=== PATIENT | female | born 1960 ===

== ENCOUNTER 2017-09-23 06:18 | Inpatient (IN) | payer MEDICARE, MEDICAID ==
--- NOTE | 2017-09-23 07:34 | C.PDOC ---
History Of Present Illness <Elvira Ashov - Last Filed: 09/23/17 18:52> <Bharat Hurst - Last Filed: 09/24/17 01:37> 56 y/o female with history of schizophrenia and HIV brought to ED by police for psych evaluation. Patient has history of psychiatric admissions and currently denies auditory or visual hallucinations. Admits to not remembering to take her medication. - notes she takes risperdal and adderall. Admits to being homeless. (Haydee Ash) History Per: Patient, EMS History/Exam Limitations: no limitations Onset/Duration Of Symptoms: Days Current Symptoms Are (Timing): Still Present Suicide/Self Injury Attempted (Context): None <Haydee Ash - Last Filed: 09/23/17 18:52> <Bharat Hurst - Last Filed: 09/24/17 01:37> Time Seen by Provider: 09/23/17 07:32 Chief Complaint (Nursing): Psychiatric Evaluation Past Medical History Reviewed: Historical Data, Nursing Documentation, Vital Signs - Medical History PMH: HIV, Schizophrenia Surgical History: No Surg Hx Family History: States: No Known Family Hx - Social History Hx Alcohol Use: No (unknown) Hx Substance Use: No (unknown) <Haydee Ash - Last Filed: 09/23/17 18:52> Vital Signs: Last Vital Signs Temp 98.4 F 09/23/17 20:00 Pulse 78 09/23/17 20:00 Resp 20 09/23/17 20:00 BP 107/67 09/23/17 20:00 Pulse Ox 98 09/23/17 20:00 Review Of Systems Review Of Systems: ROS cannot be obtained secondary to pt's inabilty to answer questions. <Haydee Ash - Last Filed: 09/23/17 18:52> Physical Exam - Physical Exam Appears: Non-toxic, No Acute Distress, Other (Talking nonsensical, Flight of ideas noted. tearful occassionally) Skin: Warm, Dry, No Rash Head: Atraumatic, Normacephalic Eye(s): bilateral: Normal Inspection, EOMI Nose: Normal Oral Mucosa: Moist Neck: Normal ROM, Supple Chest: Symmetrical Cardiovascular: Rhythm Regular Respiratory: Normal Breath Sounds, No Rales, No Rhonchi, No Wheezing Gastrointestinal/Abdominal: Soft, No Tenderness, No Guarding, No Ascites Extremity: Normal ROM, Other (Well healed right toe amputation) Neurological/Psych: No Oriented x3 (alert and awake x 1), Other (Involuntary body movements) <Haydee Ash - Last Filed: 09/23/17 18:52> ED Course And Treatment - Laboratory Results Result Diagrams: 09/23/17 07:56 09/23/17 07:56 O2 Sat by Pulse Oximetry: 97 (RA) Pulse Ox Interpretation: Normal Progress Note: Patient ate a sandwich and states "I feel good". youth accommodation support worker evaluated pt and suggests [facility] evaluation. Dr Fisher ordered medication. [facility] evaluated pt, notes pt evaluated and will return penidng alert and awake. Pt observed in ER with serial re-evaluation. Case endorsed to Dr Hurst pending re- evaluation and disposition. <Haydee Ash - Last Filed: 09/23/17 18:52> - Laboratory Results Result Diagrams: 09/23/17 07:56 09/23/17 07:56 <Bharat Hurst - Last Filed: 09/24/17 01:37> Disposition - Disposition Disposition Time: 18:59 <Haydee Ash - Last Filed: 09/23/17 18:52> Discussed With : Hardeep Fisher Doctor Will See Patient In The: Hospital Counseled Patient/Family Regarding: Diagnosis - Disposition Disposition Time: 01:37 - POA Present On Arrival: None <Bharat Hurst - Last Filed: 09/24/17 01:37> - Disposition Disposition: HOSPITALIZED Condition: STABLE Instructions: Schizophrenia (ED) Forms: [facility] (Indonesian) - Clinical Impression Clinical Impression: Schizophrenia - PA / GREENHOUSE ASSISTANT / Resident Statement MD/DO has reviewed & agrees with the documentation as recorded. - Scribe Statement The provider has reviewed the documentation as recorded by the Scribe <Haydee Ash - Last Filed: 09/23/17 18:52> <Bharat Hurst - Last Filed: 09/24/17 01:37> - Scribe Statement Gregorio Barber All medical record entries made by the Scribe were at my direction and personally dictated by me. I have reviewed the chart and agree that the record accurately reflects my personal performance of the history, physical exam, medical decision making, and the department course for this patient. I have also personally directed, reviewed, and agree with the discharge instructions and disposition. (Haydee Ash) Physician Patient Turnover Patient Signed Over To: Bharat Hurst <Haydee Ash - Last Filed: 09/23/17 18:52>
[2017-09-23 08:01] LABS: BASO % 0.6 % (0.0-2.0); EOS # 0.1 K/uL (0.0-0.7); EOS % 1.7 % (0.0-4.0); HEMOGLOBIN 12.5 g/dL (11.0-16.0); LYMPH # 2.2 K/uL (1.0-4.3); LYMPH % 31.6 % (20.0-40.0); MEAN CORPUSCULAR HEMOGLOBIN 28.9 pg (27.0-31.0); MEAN CORPUSCULAR HGB CONC 33.6 g/dL (33.0-37.0); MEAN PLATELET VOLUME 7.4 fL (7.2-11.7); MONO # 0.8 K/uL (0.0-0.8); MONO % 10.7 % (0.0-10.0); NEUT # 3.9 K/uL (1.8-7.0); NEUT % 55.4 % (50.0-75.0); NRBC % 0.1 % (0.0-2.0); RBC 4.33 Mil/uL (3.80-5.20); RED CELL DISTRIBUTION WIDTH 14.5 % (11.5-14.5); WHITE BLOOD COUNT 7.1 K/uL (4.8-10.8)
[2017-09-23 08:14] LABS: ALBUMIN 4.4 g/dL (3.5-5.0); ALT/SGPT 45 U/L (9-52); AST/SGOT 100 U/L (14-36); BLOOD UREA NITROGEN 41 mg/dL (7-17); CALCIUM 9.4 mg/dl (8.6-10.4); GFR AFRICAN-AMERICAN > 60; GFR NON-AFRICAN AMERICAN 52
[2017-09-23 08:26] LABS: ALB/GLOB RATIO 0.9 (1.0-2.1)
[2017-09-23 08:49] LABS: SQUAMOUS EPITHIAL 2 /hpf (0-5); URINE BILIRUBIN NEGATIVE (NEGATIVE); URINE CLARITY Clear (Clear); URINE COLOR Yellow (YELLOW); URINE GLUCOSE (UA) NORMAL (Normal); URINE LEUKOCYTE ESTERASE TRACE Leu/uL (Negative); URINE NITRATE NEGATIVE (NEGATIVE); URINE PROTEIN 1+ mg/dL (NEGATIVE); URINE UROBILINOGEN NORMAL mg/dL (0.2-1.0)
[2017-09-23 09:06] LABS: BARBITURATES, UR NEGATIVE (NEGATIVE); BENZODIAZEPINES, UR NEGATIVE (NEGATIVE); PHENCYCLIDINE, UR NEGATIVE (NEGATIVE)
[2017-09-23 09:30] LABS: OPIATES, UR POSITIVE (NEGATIVE)
[2017-09-23 09:34] LABS: URINE BLOOD NEGATIVE (NEGATIVE)
--- NOTE | 2017-09-24 02:30 | PCM.BM ---
Treatment Plan Problems - Problems identified on initial assessmt Schizophrenia Date Initiated: 09/24/17 Time Initiated: 02:20 Assessment reference: NA Status: Active Problem 2 Assessment reference: NA Status: Active Substance Abuse Assessment reference: NA Status: Active Treatment assets and liabiliti Patient Assests: cooperative, ADL independent, negotiates basic needs Patient Liabilities: live alone, financial problems, poor support system, substance abuse - Milieu Protocol Maintain good personal hygiene: daily Encourage regular showers, daily Remind patient to perform daily oral care, daily Assist patient to perform ADL's Conduct patient checks and document Observation sheet: Q15 minutes Maintain personal safety: every shift Educate patient to report safety concerns to staff, every shift Monitor environment for contraband/sharps Medication safety: Monitor for expected outcome, potential side effects: every shift, Assess barriers to learning: every shift, Assess readiness for medication education: every shift
--- NOTE | 2017-09-24 03:18 | PCM.BM ---
<Judith Molina - Last Filed: 09/24/17 03:16> Treatment Plan Problems - Problems identified on initial assessmt Schizophrenia Date Initiated: 09/24/17 Time Initiated: 02:20 Assessment reference: NA Status: Active Anxiety Date Initiated: 09/24/17 Time Initiated: 02:20 Assessment reference: NA Status: Active Treatment assets and liabiliti Patient Assests: ADL independent, negotiates basic needs Patient Liabilities: financial problems, poor support system, medical problems - Milieu Protocol Maintain good personal hygiene: daily Encourage regular showers, daily Remind patient to perform daily oral care, daily Assist patient to perform ADL's Conduct patient checks and document Observation sheet: Q15 minutes Maintain personal safety: every shift Educate patient to report safety concerns to staff, every shift Monitor environment for contraband/sharps Medication safety: Monitor for expected outcome, potential side effects: every shift, Assess barriers to learning: every shift, Assess readiness for medication education: every shift <Yeni Hopkins - Last Filed: 09/26/17 10:52> Treatment Plan Problems - Problems identified on initial assessmt Schizophrenia Date Initiated: 09/24/17 Time Initiated: 02:20 Assessment reference: NA Status: Active Anxiety Date Initiated: 09/24/17 Time Initiated: 02:20 Assessment reference: NA Status: Active Substance Abuse Date Initiated: 09/24/17 Time Initiated: 02:20 Family Contact Family involvement: Famliy/SO not involved - Goals for Treatment Patient goals for treatment: "I want to go to an adult daycare." Discharge/Continuing Care - Education Needs Education Needs: Patient Medication, Patient Coping Skills, Patient Placement options, Patient Community resources - Discharge Discharge Criteria: Tolerates medication w/o severe side effects, Reduction of target symptoms Discharge to:: [facility] - Treatment Team Participation Discussed with Family/SO: No Was Patient/Family/SO present at Treatment Team Meeting: Yes <Hardeep Fisher - Last Filed: 09/26/17 10:57> Treatment Plan Problems - Problems identified on initial assessmt Schizophrenia Date Initiated: 09/24/17 Time Initiated: 02:20 Assessment reference: NA Status: Active Anxiety Date Initiated: 09/24/17 Time Initiated: 02:20 Assessment reference: NA Status: Active Substance Abuse Date Initiated: 09/24/17 Time Initiated: 02:20 - Diagnosis (1) Schizophrenia Status: Acute Interventions: 09/26/17 10:57 * Assess/adjust medications daily and /or as needed * See patient on an individual basis 7x/week to assess status of hallucinations * Discuss risks, benefits, side effects and alternatives of medications * (2) Cocaine use disorder, severe, dependence Status: Acute Interventions: 09/26/17 10:57 * Assess 7x/week regarding severity of withdrawal * Educate regarding risks, benefits, side effects and alternatives of medications * Use Motivational Interviewing for abstinence * Use CBT for relapse prevention * Medication management for withdrawal symptoms * Encourage medication assisted treatment *
--- NOTE | 2017-09-24 13:39 | PCM.PSYCH ---
Initial Psychiatric Evaluation - Initial Psychiatric Evaluation Type of Admission: Voluntary Legal Status: Capacity Chief Complaint (in patient's own words): I came here to get help.' History of Present Illness and Precipitating Events: This is a 56 years old HF, who was escorted to the ED by the police because they disorganized and bizzare behavior. According to ED report, pt was found by police crying in the rain and naked from the waist down. Pt presented with very restless behavior, pt was unable to still still for even 1 second. Pt was responding to questions, but not answering appropriately. Pt presented with flight of ideas, disorganized thoughts. Patient was medic[place] [facility] [place]. However since patient was sleeping, they left. Patient remained disorganized and internally preoccupied. In the ED she was reassessed around 10 PM, pt remained drowsy and disoriented. When asked where is she, pt stated "near [employer]," and when asked the city, she stated "[place]." Pt stated that the month and year "October 2017." Pt does not remember the events leading up to her coming to the hospital. Pt stated she is prescribed Risperdal 2mg and Ad[place]all by at [facility] [place] As per the hospital charts patient has a long history of schizophrenia and cocaine abuse. She was recently discharged from [facility] last month. However patient remained superficially cooperative and guarded. She remained delusional and paranoid and she continued to answer no to all the questions. She remained disorganized and appears to have loose associations. She reports of hearing voices and seeing things in the past. Her urine toxicology was positive for heroin and methamphetamine. However she denies abusing any substance and denies any SI/HI. Past medical history None reported Current Medications: Active Medications Generic Name Dose Route Start Last Admin Trade Name Freq PRN Reason Stop Dose Admin Benztropine Mesylate 1 mg 09/23/17 10:30 09/24/17 09:58 Cogentin PO 1 mg BID JOCELYN Administration Diphenhydramine HCl 25 mg 09/23/17 10:23 09/24/17 02:42 Benadryl PO 25 mg Q6 PRN Administration Agitation Fluphenazine HCl 5 mg 09/23/17 10:30 09/24/17 09:58 Prolixin PO 5 mg BID JOCELYN Administration Pneumococcal Polyvalent Vaccine 0.5 ml 09/27/17 10:00 Pneumovax 23 Vaccine IM 09/27/17 10:01 .ONCE ONE Past Psychiatric History - Past Psychiatric History Previous Treatment History: Inpatient Pertinent Medical Hx (Current Medical&Sleep Prob, Allergies): Allergies Allergy/AdvReac Type Severity Reaction Status Date / Time Unobtainable Allergy Verified 09/23/17 06:32 No Known Home Med 09/23/17 Review of Systems - Review of Systems All systems: reviewed and no additional remarkable complaints except - Psychiatric Psychiatric: Anxiety, Irritability, Paranoia Mental Status Examination - Personal Presentation Personal Presentation: Looks stated age - Affect Affect: Flat - Motor Activity Motor Activity: Psychomotor Retardation - Reliability in Providing Information Reliability in Providing Information: Poor, due to alteration in thoughts - Speech Speech: Disorganized - Mood Mood: Anxious - Formal Thought Process Formal Thought Process: Delusions, Paranoia, Loosening of associations - Hallucinations/Delusions Delusions: Persecution - Obsessions/Compulsions Obsessions: No Compulsions: No - Cognitive Functions Orientation: Person, Place, Situation, Time Sensorium: Alert Attention/Concentration: Attentive Abstract Thinking: [place] Estimate of Intelligence: Below average Judgement: Imparied, as evidence by: Poor judgement, Imparied, as evidence by: Lack of insight into illness - Risk Risk: Diminished functioning - Strength & Assets Inventory Strength & Assets Inventory: Cooperative - Limitations Limitations: Living alone DSM 5 DX - DSM 5 DSM 5 Diagnosis: Schizophrenia paranoid type continuous Cocaine use disorder moderate Opiate use disorder moderate - Recommended/Plan of Treatment Treatment Recommendations and Plan of Treatment: Schizophrenia paranoid type continuous CBT Psychoeducation Supportive therapy, group therapy, individual therapy Prolixin 5 mg by mouth twice a day Cogentin 1 mg by mouth twice a day Neurontin 100 mg by mouth 3 times a day Trazodone 50 mg by mouth daily at bedtime Cocaine use disorder moderate CBT Psychoeducation Supportive therapy, individual therapy Use [place] for abstinence Opiate use disorder moderate CBT Psychoeducation Supportive therapy, individual therapy Use [place] for abstinence - Smoking Cessation Smoking Cessation Initiated: No
[2017-09-24] MEDS ORDERED: guaiFENesin 100 mg/5 ml Syrup UD PO PRN (18:01)
--- NOTE | 2017-09-25 12:00 | PCM.PYCHPN ---
Psychiatric Progress Note - Psychiatric Progress Note Patient seen today, length of contact: 16 min Patient Chief Complaint: "I have pain" Problems Identified/Issues Discussed: The pt is seen, chart reviewed, case discussed with staff. Patient is more verbal than yesterday. Still internally preoccupied and isolated. She is complaining of hip pain. No other issues at this time. The pt is compliant with medications and reports no side-effects. Symptoms are improving but needs more time to stabilize. After care discussed, support and psychoeducation given. Medication Change: Yes Medical Record Reviewed: Yes Mental Status Examination - Cognitive Function Orientation: Person, Place, Situation, Time Memory: Impaired Attention: Poor Concentration: Poor Association: Loose Fund of Knowledge: Poor - Mood Mood: Depressed, Anxious - Affect Affect: Flat, Depressed - Speech Speech: Soft - Formal Thought Process Formal Thought Process: Delusions, Paranoia, Loosening of associations - Suicidal Ideation Suicidal Ideation: No - Homicidal Ideation Homicidal Ideation: No Goal/Treatment Plan - Goal/Treatment Plan Need for Continued Stay: Severe depression anxiety, Discharge may exacerbated symptoms, Severe functional impairment Progress Toward Problem(s) and Goals/Treatment Plan: Schizophrenia paranoid type continuous CBT Psychoeducation Supportive therapy, group therapy, individual therapy Prolixin 5 mg by mouth twice a day Cogentin 1 mg by mouth twice a day Neurontin 100 mg by mouth 3 times a day Trazodone 50 mg by mouth daily at bedtime Cocaine use disorder moderate CBT Psychoeducation Supportive therapy, individual therapy Use [place] for abstinence Opiate use disorder moderate CBT Psychoeducation Supportive therapy, individual therapy Use [place] for abstinence
--- NOTE | 2017-09-26 10:10 | PCM.PYCHPN ---
Psychiatric Progress Note - Psychiatric Progress Note Patient seen today, length of contact: 16 min Patient Chief Complaint: I came here to get help.' Problems Identified/Issues Discussed: Patient seen and evaluated, chart reviewed and discussed with the nurse. Patient remained disorganized and internally preoccupied. Today patient appeared more organized than before and less internally preoccupied. She remained disheveled and unkempt. She still reports poor sleep and poor appetite. Patient still appears paranoid and delusional. Patient reports withdrawal symptoms including headaches, cramps and sweating. Patient remained isolated, confined and withdrawn. Patient is compliant with medications and denies any side effects. Symptoms are improving but need more time to stabilize. Support and psychoeducation given. Medication Change: Yes (Increase Gabapentin increase Prolixin) Medical Record Reviewed: Yes Mental Status Examination - Cognitive Function Orientation: Person, Place, Situation, Time Memory: Impaired Attention: WNL Concentration: Poor Association: Loose Fund of Knowledge: Poor - Mood Mood: Depressed, Anxious - Affect Affect: Flat, Depressed - Speech Speech: Soft - Formal Thought Process Formal Thought Process: Paranoia, Loosening of associations - Suicidal Ideation Suicidal Ideation: No - Homicidal Ideation Homicidal Ideation: No Goal/Treatment Plan - Goal/Treatment Plan Need for Continued Stay: Severe depression anxiety, Discharge may exacerbated symptoms, Severe functional impairment Progress Toward Problem(s) and Goals/Treatment Plan: Schizophrenia paranoid type continuous CBT Psychoeducation Supportive therapy, group therapy, individual therapy Prolixin 5 mg by mouth daily Prolixin 10 mg by mouth HS Cogentin 1 mg by mouth twice a day Neurontin 300 mg by mouth 3 times a day Paxil 10 mg PO Daily Trazodone 50 mg by mouth daily at bedtime Cocaine use disorder moderate CBT Psychoeducation Supportive therapy, individual therapy Use [place] for abstinence Opiate use disorder moderate CBT Psychoeducation Supportive therapy, individual therapy Use [place] for abstinence - Smoking Cessation Smoking Cessation Initiated: No
[2017-09-26] MEDS: guaiFENesin 100 mg/5 ml Syrup UD PO PRN (11:08)
[2017-09-26 17:31] LABS: SQUAMOUS EPITHIAL 6 /hpf (0-5); URINE BACTERIA RARE (<OCC); URINE BILIRUBIN NEGATIVE (NEGATIVE); URINE BLOOD NEGATIVE (NEGATIVE); URINE CALCIUM OXALATE CRYSTALS RARE /hpf (<OCC); URINE CLARITY Clear (Clear); URINE COLOR Yellow (YELLOW); URINE GLUCOSE (UA) NORMAL (Normal); URINE LEUKOCYTE ESTERASE TRACE Leu/uL (Negative); URINE NITRATE NEGATIVE (NEGATIVE); URINE PROTEIN NEGATIVE (NEGATIVE); URINE UROBILINOGEN NORMAL mg/dL (0.2-1.0)
[2017-09-26] MEDS ORDERED: Patient's Own Medication - Tablet/Capusle PO ONE (18:34)
[2017-09-26] MEDS: COMPLERA PO SCH (19:07)
[2017-09-27] MEDS: COMPLERA PO SCH (09:45)
[2017-09-27] MEDS ORDERED: Pneumococcal 23-Valent Vaccine IM ONE (10:00)
[2017-09-27] MEDS ORDERED: Influenza Vaccine 60 mcg/0.5 mL SYR (4YR UP) IM ONE (10:00)
--- NOTE | 2017-09-27 18:36 | PCM.PYCHPN ---
Psychiatric Progress Note - Psychiatric Progress Note Patient seen today, length of contact: 15 minutes Patient Chief Complaint: I feel better. Problems Identified/Issues Discussed: Patient seen, chart reviewed, case discussed with the staff. Issues related to illness and treatment were discussed with the patient. Reported compliant with treatment with no adverse affects. Patient reported feeling better. Appeared socializing. Aftercare discussed with the patient. At the time of evaluation, patient was awake alert oriented 3, had no delusions , no auditory or visual hallucinations, no suicidal ideations or homicidal ideations. Medical Problems: None reported Diagnostic Results: Reviewed DSM 5 Symptoms Update: Improving with treatment Medication Change: No Medical Record Reviewed: Yes Mental Status Examination - Cognitive Function Orientation: Person, Place, Situation, Time Memory: Impaired Attention: WNL Concentration: WNL Association: WNL Fund of Knowledge: WN Decription of patient's judgement and insights: Fair - Mood Mood: Depressed (Less than before) - Affect Affect: Depressed - Speech Speech: Soft - Formal Thought Process Formal Thought Process: No Impairment - Suicidal Ideation Suicidal Ideation: No - Homicidal Ideation Homicidal Ideation: No Goal/Treatment Plan - Goal/Treatment Plan Need for Continued Stay: Remain at risks for inpatient hospitalization, Discharge may exacerbated symptoms, Severe functional impairment Progress Toward Problem(s) and Goals/Treatment Plan: Patient education. Supportive therapy. Continue to treatment as before. Patient will go to adult daycare after discharge from the hospital for follow- up care. Estimated Date of D/C: 09/29/17 - Smoking Cessation Smoking Cessation Initiated: No
[2017-09-28] MEDS: COMPLERA PO SCH (09:20)
--- NOTE | 2017-09-28 13:25 | PCM.PYCHPN ---
Psychiatric Progress Note - Psychiatric Progress Note Patient seen today, length of contact: 15 minutes Patient Chief Complaint: I feel better. Problems Identified/Issues Discussed: Patient seen, chart reviewed, case discussed with the staff. Issues related to illness and treatment were discussed with the patient. Reported compliant with treatment with no adverse affects. Patient reported feeling better. Appeared socializing. Patient still has some hygiene problems, not maintaining her hygiene. Aftercare discussed with the patient. At the time of evaluation, patient was awake alert oriented 3, had no delusions , no auditory or visual hallucinations, no suicidal ideations or homicidal ideations. Medical Problems: None reported Diagnostic Results: Reviewed DSM 5 Symptoms Update: Improving with treatment Medication Change: No Medical Record Reviewed: Yes Mental Status Examination - Cognitive Function Orientation: Person, Place, Situation, Time Memory: Impaired Attention: WNL Concentration: WNL Association: WNL Fund of Knowledge: [facility] Decription of patient's judgement and insights: Fair - Mood Mood: Depressed (Less than before) - Affect Affect: Depressed - Speech Speech: Soft - Formal Thought Process Formal Thought Process: No Impairment - Suicidal Ideation Suicidal Ideation: No - Homicidal Ideation Homicidal Ideation: No Goal/Treatment Plan - Goal/Treatment Plan Need for Continued Stay: Remain at risks for inpatient hospitalization, Discharge may exacerbated symptoms, Severe functional impairment Progress Toward Problem(s) and Goals/Treatment Plan: Patient education. Supportive therapy. Continue to treatment as before. Patient will go to adult daycare after discharge from the hospital for follow- up care. Estimated Date of D/C: 09/29/17 - Smoking Cessation Smoking Cessation Initiated: No
[2017-09-28] MEDS ORDERED: Vitamins A & D Oint UD Foilpak TOP PRN (20:38)
[2017-09-29 06:14] VITALS: BP 105/67; PULSE 68; RESP 18; TEMP 97.9; O2SAT 97
[2017-09-29] MEDS: COMPLERA PO SCH (09:36)
[2017-09-29] MEDS: guaiFENesin 100 mg/5 ml Syrup UD PO PRN (09:36)
--- NOTE | 2017-09-29 10:39 | PCM.PYCHDC ---
Mental Status Examination - Mental Status Examination Orientation: Person, Place, Situation, Time Memory: Intact Mood: Neutral Affect: Constricted Speech: Soft Attention: WNL Concentration: WNL Association: WNL Fund of Knowledge: WNL Formal Thought Process: No Impairment Description of patient's judgement and insight: good and fair Psychotic Thoughts and Behaviors: denies any AVH Suicidal Ideation: No Current Homicidal Ideation?: No Discharge Summary - Discharge Note Reason for Hospitalization: This is a 56 years old HF, who was escorted to the ED by the police because they disorganized and bizzare behavior. According to ED report, pt was found by police crying in the rain and naked from the waist down. Pt presented with very restless behavior, pt was unable to still still for even 1 second. Pt was responding to questions, but not answering appropriately. Pt presented with flight of ideas, disorganized thoughts. Patient was medicated ED. [facility] screeners were consulted. However since patient was sleeping, they left. Patient remained disorganized and internally preoccupied. In the ED she was reassessed around 10 PM, pt remained drowsy and disoriented. When asked where is she, pt stated "near [employer]," and when asked the city, she stated "[place]." Pt stated that the month and year "October 2017." Pt does not remember the events leading up to her coming to the hospital. Pt stated she is prescribed Risperdal 2mg and Adderrall by at [facility]. As per the hospital charts patient has a long history of schizophrenia and cocaine abuse. She was recently discharged from [facility] last month. However patient remained superficially cooperative and guarded. She remained delusional and paranoid and she continued to answer no to all the questions. She remained disorganized and appears to have loose associations. She reports of hearing voices and seeing things in the past. Her urine toxicology was positive for heroin and methamphetamine. However she denies abusing any substance and denies any SI/HI. Consultations:: List each consultation separately and include: 1. Reason for request. 2. Findings. 3. Follow-up Summary of Hospital Course include:: 1. Description of specific treatment plan utilized for patients during their course of treatmen. 2. Summarize the time- course for resolution of acute symptoms and/or regressed behaviors. 3. Describe issues identified and worked on during hospitalization. 4. Describe medication utilized. 5. Describe medical problems identified and treated. 6. Reassessment of suicide risk Summary of Hospital Course: During the course of her stay, patient (pt) started progressively improving and she no longer remained irritable, anxious and paranoid. Her mood and paranoia were improved and she started attending groups and meetings and started socializing. Patient denied any feelings of hopelessness, helplessness, and worthlessness, denied any problem with the sleep or appetite, denied suicidal ideation or homicidal ideation. Pt denied any auditory or visual hallucinations. Some changes were made in her current medications and patient was discharged on following medications. She tolerated these medications very well and denied any side effects. Pt is to follow-up with [facility] program for outpatient treatment, outreach and education social worker and housing assistance. - Diagnosis (1) Schizophrenia Status: Acute (2) Cocaine use disorder, severe, dependence Status: Acute - Final Diagnosis (DSM 5) Condition upon Discharge: STABLE DSM 5: Schizophrenia paranoid type continuous Cocaine use disorder moderate Opiate use disorder moderate Disposition: HOME/ ROUTINE Follow-up Treatment Plan: Education: Pt was educated and counseled about the risks and benefits of taking and not taking medications. Pt was educated and counseled about the risks of drinking and abusing drugs. Pt was educated and counseled to go to the ER or call 911 if pt develop suicidal ideation or homicidal ideation, worsening of symptoms or severe side effects of the meds. Prescriptions/Medication Reconciliation: Benztropine [Cogentin] 1 mg PO BID #60 tab fluPHENAZine [Prolixin] 10 mg PO BID #60 tab Gabapentin [Neurontin] 300 mg PO BID #60 cap PARoxetine [Paxil] 10 mg PO DAILY #30 tab traZODone [Desyrel] 50 mg PO HS #30 tab - Smoking Cessation Smoking Cessation Medication prescribed: No - Antipsychotic Medications Pt discharged on 2 or more routine antipsychotic medications: No
== END 2017-09-29 11:05 | disposition home or self-care (01) | DRG 885 ==
LOC: C.ER 06:18 → C.5E 09-24 01:37
PROVIDERS: ADMIT Psychiatry & Neurology Psychiatry; ATTEND Psychiatry & Neurology Psychiatry
PROC: GZ56ZZZ Individual Psychotherapy, Supportive (ICD-10-PCS; principal; 2017-09-24)
DX: F20.0 Paranoid schizophrenia (principal); Z59.0 Homelessness; F11.10 Opioid abuse, uncomplicated; Z68.23 Body mass index [BMI] 23.0-23.9, adult; F14.10 Cocaine abuse, uncomplicated; F15.10 Other stimulant abuse, uncomplicated